=== PATIENT | male | born 1945 | race Caucasian/White ===

== ENCOUNTER → 2016-08-31 | Outpatient (CLI) | payer OTHER | LOC: BHFA 16:00 | PROVIDERS: ATTEND Internal Medicine Cardiovascular Disease | DX: I48.91 Unspecified atrial fibrillation (principal) ==

== ENCOUNTER → 2016-11-24 | Outpatient (CLI) | payer OTHER | LOC: BHFA 09:30 | PROVIDERS: ATTEND Internal Medicine Cardiovascular Disease | DX: I48.91 Unspecified atrial fibrillation (principal) ==

== ENCOUNTER → 2017-12-29 | Outpatient (CLI) | payer OTHER | LOC: BHFA 07:13 | PROVIDERS: ATTEND Internal Medicine Cardiovascular Disease | DX: I48.91 Unspecified atrial fibrillation (principal); R94.31 Abnormal electrocardiogram [ECG] [EKG] ==

== ENCOUNTER → 2018-06-07 | Outpatient (CLI) | payer OTHER | LOC: BHFA 10:30 | PROVIDERS: ATTEND Internal Medicine Cardiovascular Disease | DX: I48.91 Unspecified atrial fibrillation (principal) ==

== ENCOUNTER 2018-09-06 08:53 | Observation (INO) | payer OTHER ==
[2018-09-06] MEDS ORDERED: NS 500 ML IV ONE (08:55)
--- NOTE | 2018-09-06 08:59 | EDPHY ---
H & P Time Seen by Provider: 09/06/18 08:56 HPI/ROS: CHIEF COMPLAINT: Nausea, vomiting, lightheadedness HISTORY OF PRESENT ILLNESS: Patient has a history of atrial fibrillation and does have a permanent pacemaker. He presents to the ED today after he developed nausea, vomiting and lightheadedness after a 3 mi run today. The patient denies any chest pain or shortness of breath. He denies any diarrhea. He denies any fever, cough or congestion. The patient is brought in by paramedics. They did note a sinus rhythm and occasional activation of the patient's pacemaker with a rate of 110. The patient denies any acute abdominal pain. He denies any headache or lightheadedness. He does feel quite poor secondary to his ongoing nausea and retching. REVIEW OF SYSTEMS: A comprehensive 10 point review of systems is otherwise negative aside from elements mentioned in the history of present illness. Source: Patient, EMS - Personal History Tetanus Vaccine Date: 2006 - Medical/Surgical History Hx Asthma: No Hx Chronic Respiratory Disease: No Hx Diabetes: No Hx Cardiac Disease: No Hx Renal Disease: No Hx Cirrhosis: No Hx Alcoholism: No Hx HIV/AIDS: No Hx Splenectomy or Spleen Trauma: No Other PMH: PMH:HTN, afib (pacer), cpap. PSH: knee surgeries, fx's , appendectomy, tonsillectomy - Social History Smoking Status: Never smoked - Physical Exam Exam: General Appearance: Uncomfortable secondary to active vomiting Eyes: Pupils equal and round no pallor or injection ENT, Mouth: Mucous membranes moist Respiratory: There are no retractions, lungs are clear to auscultation Cardiovascular: Regular rate and rhythm Gastrointestinal: Abdomen is soft and nontender, no masses, bowel sounds normal Neurological: 5/5 strength all 4 extremities Skin: Warm and dry, no rashes Musculoskeletal: Neck is supple nontender Extremities: symmetrical, full range of motion Psychiatric: Patient is oriented X 3, there is no agitation Constitutional: Initial Vital Signs Temperature (C) 36.5 C 09/06/18 08:58 Heart Rate 63 09/06/18 08:58 Respiratory Rate 19 09/06/18 08:58 Blood Pressure 177/106 H 09/06/18 08:58 O2 Sat (%) 100 09/06/18 08:58 O2 Delivery Mode Room Air Allergies/Adverse Reactions: No Known Allergies Allergy (Verified 09/06/18 09:01) Home Medications: Medication Instructions Recorded Aspirin [Aspirin 325 mg (OTC)] 325 mg PO DAILY 10/16/12 Lisinopril [Zestril 20 mg (RX)] 20 mg PO DAILY 03/26/13 Medical Decision Making - Diagnostics EKG Interpretation: EKG: Complete interpretation has been separately recorded in the [employer] [facility] archive. Summary impression: Sinus rhythm, rate 64 Imaging Results: Imaging Impressions Chest X-Ray 09/06/18 09:33 Impression: 1. Clear lungs. No acute process. 2. Minimal cardiomegaly and pacemaker leads unchanged since 2012. ED Course/Re-evaluation: Patient presents to the ED with subjective palpitations. While in the department the patient had no obvious arrhythmia noted. His pacemaker did appear to be normally functioning. The patient's pacemaker was interrogated. Interrogation did demonstrate sporadic PVCs. The patient was quite anxious. He received a mg of Ativan. The patient also was noted to have no ischemic changes on his EKG and normal troponin. The patient underwent an echocardiogram which demonstrated no wall motion abnormality, pericardial effusion or other acute valvular issue. I discussed the case with the patient's regular mental health nurse Dr. Vaughan who has recommended to ED discharge. The patient has no complaints of chest pain or shortness of breath. The patient is noted to be neurologically intact. He has equal pulses in all 4 extremities. The patient will be discharged from the emergency department with strict return instructions. He will follow up with Dr. Vaughan as an outpatient. Differential Diagnosis: Differential diagnosis considered includes atrial fibrillation, atrial flutter, SVT, pacemaker malfunction, pericardial effusion, acute coronary syndrome, myocardial infarction - Data Points Laboratory Results: Laboratory Results 09/06/18 09:00 09/06/18 09:00 09/06/18 09/06/18 09/06/18 09:09 09:00 09:00 WBC 6.76 10^3/uL 10^3/uL (3.80-9.50) RBC 4.94 10^6/uL 10^6/uL (4.40-6.38) Hgb 16.0 g/dL g/dL (13.7-17.5) Hct 46.6 % % (40.0-51.0) MCV 94.3 fL fL (81.5-99.8) MCH 32.4 pg pg (27.9-34.1) MCHC 34.3 g/dL g/dL (32.4-36.7) RDW 13.1 % % (11.5-15.2) Plt Count 207 10^3/uL 10^3/uL (150-400) MPV 10.5 fL fL (8.7-11.7) Neut % (Auto) 51.9 % % (39.3-74.2) Lymph % (Auto) 36.8 % % (15.0-45.0) Cowley % (Auto) 8.6 % % (4.5-13.0) Eos % (Auto) 1.5 % % (0.6-7.6) Baso % (Auto) 0.9 % % (0.3-1.7) Nucleat RBC Rel Count 0.0 % % (0.0-0.2) Absolute Neuts (auto) 3.51 10^3/uL 10^3/uL (1.70-6.50) Absolute Lymphs (auto) 2.49 10^3/uL 10^3/uL (1.00-3.00) Absolute Monos (auto) 0.58 10^3/uL 10^3/uL (0.30-0.80) Absolute Eos (auto) 0.10 10^3/uL 10^3/uL (0.03-0.40) Absolute Basos (auto) 0.06 10^3/uL 10^3/uL (0.02-0.10) Absolute Nucleated RBC 0.00 10^3/uL 10^3/uL (0-0.01) Immature Gran % 0.3 % % (0.0-1.1) Immature Gran # 0.02 10^3/uL 10^3/uL (0.00-0.10) Sodium 142 mEq/L mEq/L (135-145) Potassium 4.0 mEq/L mEq/L (3.5-5.2) Chloride 109 mEq/L mEq/L (97-110) Carbon Dioxide 20 mEq/l L mEq/l (22-31) Anion Gap 13 mEq/L mEq/L (6-14) BUN 13 mg/dL mg/dL (7-23) Creatinine 0.8 mg/dL mg/dL (0.7-1.3) Estimated GFR > 60 Glucose 113 mg/dL H mg/dL (70-100) Calcium 9.7 mg/dL mg/dL (8.5-10.4) Total Bilirubin 1.2 mg/dL mg/dL (0.1-1.4) Conjugated Bilirubin 0.4 mg/dL mg/dL (0.0-0.5) Unconjugated Bilirubin 0.8 mg/dL mg/dL (0.0-1.1) AST 32 IU/L IU/L (17-59) ALT 29 IU/L IU/L (21-72) Alkaline Phosphatase 139 IU/L H IU/L (38-126) POC Troponin I 0.00 ng/mL ng/mL (0.00-0.08) Total Protein 7.3 g/dL g/dL (6.3-8.2) Albumin 4.6 g/dL g/dL (3.5-5.0) Lipase 131 IU/L IU/L (23-300) Medications Given: Discontinued Medications Sodium Chloride (Ns) 500 mls @ 1,000 mls/hr IV EDNOW ONE PRN Reason: Protocol Stop: 09/06/18 09:24 Last Admin: 09/06/18 09:04 Dose: 500 mls Lorazepam (Ativan Injection) 1 mg IVP EDNOW ONE Stop: 09/06/18 09:51 Last Admin: 09/06/18 09:54 Dose: 1 mg Point of Care Test Results: Chemistry 09/06/18 09:09 POC Troponin I 0.00 ng/mL ng/mL (0.00-0.08) Departure - Departure Disposition: Home, Routine, Self-Care Clinical Impression: Palpitations Condition: Good Instructions: Heart Palpitations (ED) Additional Instructions: 1. The testing done in the emergency department today is normal. 2. Please follow up with Dr. Vaughan. His office will contact you today to schedule a follow-up visit. 3. Please return to the ED immediately for any elevated heart rate, chest pain, shortness of breath or other concerns. Referrals: Vijay Vaughan MD [Medical Doctor] - As per Instructions
[2018-09-06 09:14] LABS: PLATELET COUNT 207 10^3/uL (150-400)
[2018-09-06] MEDS ORDERED: LORazepam 2 MG/ML INJ IVP ONE (09:50)
--- NOTE | 2018-09-06 09:58 | CPEKG ---
Test Reason : OPEN Blood Pressure : / mmHG Vent. Rate : 064 BPM Atrial Rate : 063 BPM P-R Int : 192 ms QRS Dur : 112 ms QT Int : 422 ms P-R-T Axes : 073 051 006 degrees QTc Int : 436 ms Sinus rhythm Confirmed by Reinaldo Sellers ([id number]) on 09/06/2018 9:57:57 AM Referred By: Reinaldo Sellers Confirmed By:Reinaldo Sellers
--- NOTE | 2018-09-06 10:44 | ECHO ---
[email or web address] [address] [address] Main: [phone] Echocardiography Examination Transthoracic Name: ASCENCION ROWE MR#: [id number] Study Date: 09/06/2018 Study Time: 09:58 AM Date of : 1945 Age: 72 year(s) Height: 182.9 cm (72 in.) Weight: 81.65 kg (180 lb.) BSA: 2.04 m2 Gender: Male Examination: Echo Contrast: Image Quality: Adequate Rhythm: Pacemaker rhythm Heart Rate: 60 bpm BP: 155 mmHg/87 mmHg Indication: Acute Dizziness, Nausea Procedure Staff Referring Physician: Shingle Sawyer: Reading Physician: Bob Alonso MD Requesting Provider: Indication: Acute Dizziness, Nausea Measurements Chambers AV/MV Label Value Normal Value Label Value Normal Value EF lower range (%) 70 % MV A Vmax 0.6 m/s EF upper range (%) 75 % MV E' lateral 0.08 m/s IVSd, 2D 0.7 cm (0.6cm - 1.1cm) MV E' mean 0.07 m/s LVDd, 2D 4.9 cm (4.2cm - 5.9cm) MV E' septal 0.06 m/s LVDs, 2D 3 cm (2.1cm - 4cm) MV E Vmax 0.47 m/s LVEF, 2D 70 % (54% - 74%) MV E/A 0.78 LVOT PGmax 4 mmHg MV E/E' lateral 6 LVOT PGmean 2 mmHg MV E/E' mean 6.71 LVOT Vmax 0.98 m/s (0.7m/s - 1.1m/s) MV E/E' septal 8.2 (0.45 - 1.25) LVOT Vmean 0.6 m/s TV/PV LVPWd, 2D 0.9 cm (0.6cm - 1cm) Label Value Normal Value RVDd, 2D 2.6 cm (1.9cm - 3.8cm) RA Pressure 5 mmHg LA Volume, BP 55 ml (18ml - 58ml) RVSP 26 mmHg LAESV index, BP 27 ml/m2 TR Pmax 21 mmHg Additional Vessels TR Vmax 2.31 m/s Label Value Normal Value PV PGmax 3 mmHg AoRoot, MM 3.4 cm (2.2cm - 3.7cm) PV Vmax, Caliper 0.88 m/s (0.6m/s - 0.9m/s) Conclusions Patient: ASCENCION ROWE Study Date: 09/06/2018 Page 1 of 3 09:58 AM Left Ventricle: Normal global systolic left ventricular function. EF range is estimated at 70 % - 75 %. Right Ventricle: There is a pacing wire present in the right ventricle. Mitral Valve: Trivial to mild mitral regurgitation. Tricuspid Valve: Trivial tricuspid regurgitation. Right Ventricular systolic pressure is measured at 26 mmHg. Findings Left Ventricle: Left ventricle is normal in size. Normal global systolic left ventricular function. EF range is estimated at 70 % - 75 %. Left ventricle wall thickness is normal. There are no regional wall motion abnormalities. Grade I Diastolic Dysfunction. No LV hypertrophy. Right Ventricle: Normal size right ventricle. The RV function appears grossly normal. There is a pacing wire present in the right ventricle. 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 The left atrium is normal in size. Right Atrium: The right atrium is normal in size. Mitral Valve: Mitral valve appears structurally normal. Trivial to mild mitral regurgitation. There is no mitral calcification. Aortic Valve: Aortic leaflets are structurally normal. No aortic valve regurgitation. Aortic leaflets exhibit no calcification. The aortic valve is trileaflet. Tricuspid Valve: Tricuspid valve leaflets are structurally normal. Trivial tricuspid regurgitation. Right Ventricular systolic pressure is measured at 26 mmHg. Pulmonary artery pressure normal. Pulmonic Valve: Pulmonic leaflets are structurally normal. Aorta: The aorta is normal. The aortic root size in M-mode measures 3.4 cm. Aorta Measurements AoRoot, MM is 3.4 cm. Pericardium: No pericardial effusion. Exam Details Procedure Ordered: Echo Procedure Status: Routine study Image Quality: Adequate Facility Location: Cardiac Echo 1 (No Signature Object) Patient: ASCENCION ROWE Study Date: 09/06/2018 Page 2 of 3 09:58 AM Patient: ASCENCION ROWE Study Date: 09/06/2018 Page 3 of 3 09:58 AM [id number]
[2018-09-06] MEDS ORDERED: ONDANSETRON DISINTEGRATING 4 MG TAB PO ONE (11:42)
[2018-09-06] MEDS ORDERED: MECLIZINE HCL 25 MG TAB PO ONE (11:42)
[2018-09-06] MEDS ORDERED: IOPAMIDOL (ISOVUE-370) 150 ML BTL IV ONE (12:06)
[2018-09-06] MEDS ORDERED: ONDANSETRON DISINTEGRATING 4 MG TAB PO PRN (13:45)
[2018-09-06] MEDS ORDERED: ONDANSETRON 4 MG/2 ML VIAL IVP PRN (13:45)
[2018-09-06] MEDS ORDERED: ACETAMINOPHEN 325 MG TAB PO PRN (13:45)
[2018-09-06] MEDS ORDERED: NS 1,000 ML IV SCH (14:00)
--- NOTE | 2018-09-06 14:18 | PDGENHP ---
<Lou Lehman - Last Filed: 09/06/18 15:02> History and Physical - Chief Complaint Vertigo, lightheadedness, N/V - History of Present Illness 72 y/o male w/ hx of atrial fibrillation not AC and dual pacemaker presents w/ acute onset of nausea, vomiting, and vertigo-like symptoms shortly after going for his 3 mile run today. He felt fine before the run but after the run and during recovery, he felt like his pacemaker continued to cause his heart rate to be elevated (reports it was 86 bpm instead of the usual 60s, BP normotensive) , felt nauseous, lightheaded and began to vomit. He decided to lie down thinking this would alleviate his symptoms but it did not. Denies CP, palpitations, fever, chills, diarrhea, constipation, headache or vision changes. He called 911. Pacemaker was interrogated and it demonstrated sporadic PVCs. During this time, the pt was quite anxious and received 1mg of IVP Ativan. Full cardiac work-up ( EKG, trop, echo) were unremarkable. Case was discussed w/pt's fresh work wrapper layer, Dr. Vaughan, who recommended pt to be d/c'ed from ED seeing how no c/o CP, SOB, unremarkable cardiac labs/images and appeared to be neurologically intact. Prior to d/c though, he developed recurrent symptoms of N/V/vertigo. Pt's reported he was having difficulty remembering events in the ED which seemed consistent with TGA. Further imaging (head CT w/o contrast, head/neck w/ contrast) were unremarkable. He is being admitted for treatment and monitoring of nausea, vomiting, and vertigo. History Information - Allergies/Home Medication List Allergies/Adverse Reactions: No Known Allergies Allergy (Verified 09/06/18 09:01) Home Medications: Aspirin [Aspirin 325 mg (OTC)] 325 mg PO HS 10/16/12 [Last Taken 09/05/18] Herbals/Supplements -Info Only 1 ea PO DAILY 09/06/18 [Last Taken Unknown] Lisinopril [Zestril 40 mg (*)] 40 mg PO HS 09/06/18 [Last Taken 09/05/18] Phoenix-3 Fatty Acids [Fish Oil 1000 mg (*)] 1,000 mg PO HS 09/06/18 [Last Taken 09/05/18] amLODIPine BESYLATE [Norvasc 5 mg (*)] 5 mg PO HS 09/06/18 [Last Taken 1 Week Ago ~08/30/18] I have personally reviewed and updated: family history, medical history, social history, surgical history - Past Medical History atrial fibrillation, hypertension Additional medical history: SEAN w/ CPAP. Atrial septal defect - Surgical History Reports: appendectomy, pacemaker/AICD Additional surgical history: Knee surgeries. Tonsillectomy - Family History Positive for: diabetes type II, hypertension - Social History Smoking Status: Never smoked Alcohol Use: Rarely (3-4 beers/week) Drug Use: None Additional social history: Active w/daily runs, plays tennis. 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 Review of Systems Review of Systems: ROS: 10pt was reviewed & negative except for what was stated in HPI & below Physical Exam Physical Exam: Lab data and imaging were reviewed. WBC: 6.76 RBC/H/H: 4.94/16/46.6 K: 4.0 BUN/Cr: 13/0.8 Alk phos: 139 AST/ALT: 32/29 Lipase: 131 Trop: 0.00 CXR: Mild cardiomegaly + pacemaker presence. Clear lungs. EKG: SR Echo: No wall abnormalities, EF 70-75% Head CT w/and w/o contrast: No intracranial hemorrhage. Negative CT Neck CT w/contrast: no significant ICA stenosis, patent vertebral arteries Temp Pulse Resp BP Pulse Ox 36.9 C 67 10 L 152/86 H 99 09/06/18 14:07 09/06/18 14:07 09/06/18 14:07 09/06/18 14:07 09/06/18 14:07 Constitutional: uncomfortable, other (Mild to moderately distressed pt, pleasant , cooperative. Appears uncomfortable because of his nausea.) Eyes: PERRL, anicteric sclera, EOMI, other (No nystagmus, unable to provoke dizziness w/head movements, felt slightly nauseous and lightheaded while upright ) Ears, Nose, Mouth, Throat: moist mucous membranes, hearing normal, ears appear normal, no oral mucosal ulcers Cardiovascular: regular rate and rhythym, no murmur, rub, or gallop, No edema Peripheral Pulses: 2+: dorsalis-pedis (R) (Radial 2+), dorsalis-pedis (L) ( Radial 2+) Respiratory: no respiratory distress, no rales or rhonchi, clear to auscultation Gastrointestinal: normoactive bowel sounds, soft, non-tender abdomen, no palpable masses Genitourinary: no bladder fullness, no bladder tenderness Skin: warm, normal color, no rashes or abrasions, no fluctuance, no induration, No mottled Musculoskeletal: full muscle strength, no muscle tenderness, normal joint ROM, no joint effusions Neurologic: AAOx3, sensation intact bilaterally, CN II-XII Intact, other ( Unable to recall 3 named items 5 minutes later. Gait steady, no signs of being off balance - pt feels "wobbly", performed [id number] test w/o issue) Psychiatric: interacting appropriately, not encephalopathic, thought process linear, anxious (Mildly anxious, is typically an anxious person. He was stressed recently applying for a position on the [employer].) Lymph, Heme, Immunologic: no cervical LAD, no supraclavicular LAD Lab Data & Imaging Review 09/06/18 09:00 09/06/18 09:00 WBC 6.76 10^3/uL (3.80-9.50) 09/06/18 09:00 RBC 4.94 10^6/uL (4.40-6.38) 09/06/18 09:00 Hgb 16.0 g/dL (13.7-17.5) 09/06/18 09:00 Hct 46.6 % (40.0-51.0) 09/06/18 09:00 MCV 94.3 fL (81.5-99.8) 09/06/18 09:00 MCH 32.4 pg (27.9-34.1) 09/06/18 09:00 MCHC 34.3 g/dL (32.4-36.7) 09/06/18 09:00 RDW 13.1 % (11.5-15.2) 09/06/18 09:00 Plt Count 207 10^3/uL (150-400) 09/06/18 09:00 MPV 10.5 fL (8.7-11.7) 09/06/18 09:00 Neut % (Auto) 51.9 % (39.3-74.2) 09/06/18 09:00 Lymph % (Auto) 36.8 % (15.0-45.0) 09/06/18 09:00 Henderson % (Auto) 8.6 % (4.5-13.0) 09/06/18 09:00 Eos % (Auto) 1.5 % (0.6-7.6) 09/06/18 09:00 Baso % (Auto) 0.9 % (0.3-1.7) 09/06/18 09:00 Nucleat RBC Rel Count 0.0 % (0.0-0.2) 09/06/18 09:00 Absolute Neuts (auto) 3.51 10^3/uL (1.70-6.50) 09/06/18 09:00 Absolute Lymphs (auto) 2.49 10^3/uL (1.00-3.00) 09/06/18 09:00 Absolute Monos (auto) 0.58 10^3/uL (0.30-0.80) 09/06/18 09:00 Absolute Eos (auto) 0.10 10^3/uL (0.03-0.40) 09/06/18 09:00 Absolute Basos (auto) 0.06 10^3/uL (0.02-0.10) 09/06/18 09:00 Absolute Nucleated RBC 0.00 10^3/uL (0-0.01) 09/06/18 09:00 Immature Gran % 0.3 % (0.0-1.1) 09/06/18 09:00 Immature Gran # 0.02 10^3/uL (0.00-0.10) 09/06/18 09:00 Sodium 142 mEq/L (135-145) 09/06/18 09:00 Potassium 4.0 mEq/L (3.5-5.2) 09/06/18 09:00 Chloride 109 mEq/L (97-110) 09/06/18 09:00 Carbon Dioxide 20 mEq/l (22-31) L 09/06/18 09:00 Anion Gap 13 mEq/L (6-14) 09/06/18 09:00 BUN 13 mg/dL (7-23) 09/06/18 09:00 Creatinine 0.8 mg/dL (0.7-1.3) 09/06/18 09:00 Estimated GFR > 60 09/06/18 09:00 Glucose 113 mg/dL (70-100) H 09/06/18 09:00 Calcium 9.7 mg/dL (8.5-10.4) 09/06/18 09:00 Total Bilirubin 1.2 mg/dL (0.1-1.4) 09/06/18 09:00 Conjugated Bilirubin 0.4 mg/dL (0.0-0.5) 09/06/18 09:00 Unconjugated Bilirubin 0.8 mg/dL (0.0-1.1) 09/06/18 09:00 AST 32 IU/L (17-59) 09/06/18 09:00 ALT 29 IU/L (21-72) 09/06/18 09:00 Alkaline Phosphatase 139 IU/L (38-126) H 09/06/18 09:00 POC Troponin I 0.00 ng/mL (0.00-0.08) 09/06/18 09:09 Total Protein 7.3 g/dL (6.3-8.2) 09/06/18 09:00 Albumin 4.6 g/dL (3.5-5.0) 09/06/18 09:00 Lipase 131 IU/L (23-300) 09/06/18 09:00 Assessment & Plan Plan: 72 y/o male w/ atrial fibrillation not on AC and pacemaker presenting w/acute onset of N/V/vertigo-like symptoms today post-run. He runs 3 miles daily, did not take a different path today. He has not had these symptoms present before. After receiving Ativan in the ED d/t anxiety, it seems he developed TGA w/the inability to recall 3 items after 5 minutes and not remembering events while in the ED. A full work-up ensued and was unremarkable. Hemodynamically stable. #Vertigo: Unable to provoke symptoms w/ head movements however while upright and ambulating, reports mild nausea and lightheadedness. -Neurology to consult in AM. Possible viral infection provoking symptoms. If symptoms not improved by AM or symptoms worsen, brain MRI w/o contrast would be appropriate. -Anti-emetics PRN -Meclizine -Received 1/2L NS in ED; will receive IVF x 1 bag d/t IV contrast and N/V -Orthostatic vitals one time -PT/OT to evaluate and treat #TGA: see above #A-fib: Currently not AC. Pt reports he was started on Eliquis in 2018 but stopped mid-2018 because he does not believe he has a-fib any longer. Dr. Vaughan is unaware he stopped his AC. -Cont tele monitoring -Informed Dr. Vaughan pt is no longer on AC -Cycle trop x 1 this afternoon; first trop negative -Cont ASA -Recommend for pt to f/u w/outpatient cards #HTN: on amlodipine, lisinopril Diet: Regular Code: Full VTE ppx: Lovenox subq Dispo: Admit to obs <Jair Gilliland - Last Filed: 09/06/18 19:04> History and Physical - History of Present Illness Review of Systems Review of Systems: Physical Exam Physical Exam: Temp Pulse Resp BP Pulse Ox 37.0 C 60 10 L 134/83 H 96 09/06/18 15:11 09/06/18 15:11 09/06/18 15:11 09/06/18 15:11 09/06/18 15:11 Lab Data & Imaging Review 09/06/18 09:00 09/06/18 09:00 WBC 6.76 10^3/uL (3.80-9.50) 09/06/18 09:00 RBC 4.94 10^6/uL (4.40-6.38) 09/06/18 09:00 Hgb 16.0 g/dL (13.7-17.5) 09/06/18 09:00 Hct 46.6 % (40.0-51.0) 09/06/18 09:00 MCV 94.3 fL (81.5-99.8) 09/06/18 09:00 MCH 32.4 pg (27.9-34.1) 09/06/18 09:00 MCHC 34.3 g/dL (32.4-36.7) 09/06/18 09:00 RDW 13.1 % (11.5-15.2) 09/06/18 09:00 Plt Count 207 10^3/uL (150-400) 09/06/18 09:00 MPV 10.5 fL (8.7-11.7) 09/06/18 09:00 Neut % (Auto) 51.9 % (39.3-74.2) 09/06/18 09:00 Lymph % (Auto) 36.8 % (15.0-45.0) 09/06/18 09:00 Henderson % (Auto) 8.6 % (4.5-13.0) 09/06/18 09:00 Eos % (Auto) 1.5 % (0.6-7.6) 09/06/18 09:00 Baso % (Auto) 0.9 % (0.3-1.7) 09/06/18 09:00 Nucleat RBC Rel Count 0.0 % (0.0-0.2) 09/06/18 09:00 Absolute Neuts (auto) 3.51 10^3/uL (1.70-6.50) 09/06/18 09:00 Absolute Lymphs (auto) 2.49 10^3/uL (1.00-3.00) 09/06/18 09:00 Absolute Monos (auto) 0.58 10^3/uL (0.30-0.80) 09/06/18 09:00 Absolute Eos (auto) 0.10 10^3/uL (0.03-0.40) 09/06/18 09:00 Absolute Basos (auto) 0.06 10^3/uL (0.02-0.10) 09/06/18 09:00 Absolute Nucleated RBC 0.00 10^3/uL (0-0.01) 09/06/18 09:00 Immature Gran % 0.3 % (0.0-1.1) 09/06/18 09:00 Immature Gran # 0.02 10^3/uL (0.00-0.10) 09/06/18 09:00 Sodium 142 mEq/L (135-145) 09/06/18 09:00 Potassium 4.0 mEq/L (3.5-5.2) 09/06/18 09:00 Chloride 109 mEq/L (97-110) 09/06/18 09:00 Carbon Dioxide 20 mEq/l (22-31) L 09/06/18 09:00 Anion Gap 13 mEq/L (6-14) 09/06/18 09:00 BUN 13 mg/dL (7-23) 09/06/18 09:00 Creatinine 0.8 mg/dL (0.7-1.3) 09/06/18 09:00 Estimated GFR > 60 09/06/18 09:00 Glucose 113 mg/dL (70-100) H 09/06/18 09:00 Calcium 9.7 mg/dL (8.5-10.4) 09/06/18 09:00 Total Bilirubin 1.2 mg/dL (0.1-1.4) 09/06/18 09:00 Conjugated Bilirubin 0.4 mg/dL (0.0-0.5) 09/06/18 09:00 Unconjugated Bilirubin 0.8 mg/dL (0.0-1.1) 09/06/18 09:00 AST 32 IU/L (17-59) 09/06/18 09:00 ALT 29 IU/L (21-72) 09/06/18 09:00 Alkaline Phosphatase 139 IU/L (38-126) H 09/06/18 09:00 POC Troponin I 0.00 ng/mL (0.00-0.08) 09/06/18 09:09 Troponin I < 0.012 ng/mL (0.000-0.034) 09/06/18 14:47 Total Protein 7.3 g/dL (6.3-8.2) 09/06/18 09:00 Albumin 4.6 g/dL (3.5-5.0) 09/06/18 09:00 Lipase 131 IU/L (23-300) 09/06/18 09:00 Assessment & Plan Assessment: Palpitations (Acute) Plan: I have reviewed the chart, and seen the patient with interview and examination, and have discussed the patient with [facility] nurse practitioner Overall agree with the history physical and plans as above. The 1 issue I would correct is that the problem list at the end of the note mentions TGA, which was intended to designate transient global amnesia. In fact the patient had amnesia after receiving Ativan in the ER and the patient does not have transient global amnesia I have placed my discussion of the patient's acute issues separately in another note today
--- NOTE | 2018-09-06 19:02 | HOSPPROG ---
Hospitalist Progress Note Assessment/Plan: I have examined this patient and interviewed him in detail, reviewed the results of all his tests, and I reviewed with Katherine Lehman nurse practitioner who did his history and physical. DIAGNOSES: * Acute vertigo onset this morning has now resolved, and his last dose of medication was long enough ago that I think his symptoms actually are resolving or rapidly improving * Known history of AFib but no recent AFib by interrogation of his pacer today * Palpitations he experienced today were due to PVCs according to his pacemaker. These are benign in likely triggered by his vertigo event * Chronic sleep apnea on CPAP This patient's vertigo has resolved and I am unable with my exam to find anything to determine its cause or site of origin. There are several things in the story that make me believe this is probably viral labyrinthitis. The 1st is that his has had a very bad cold going on for the last couple weeks or so. The 2nd is that he had persistent vertigo severe enough that he was lying on the floor in his house vomiting, but there were no other bulbar neurologic symptoms or other neurologic symptoms. The 3rd is that he does have 1 prior episode of very similar vertigo that lasted several hours, and for which he had not received any specific assessment so we have no previous clinical records. Having ischemic bulbar vertigo twice several years apart with no other associated neurologic symptoms seems unlikely. There is no history of a recent head injury and there are no hearing symptoms or tinnitus to suggest other ear related vertigo aside from viral labyrinthitis. At this point as his symptoms are resolving there is likely little else we would need to do if this is a viral labyrinthitis. He could certainly use symptomatic medications as needed for any recurrent symptoms. On the off chance that this is ischemic, we are unable to do MRI as he has a pacemaker. He does have atrial fibrillation history but we have interrogated his pacemaker and he has had no recent atrial fibrillation so this would not be in atrial fib induced ischemia. He does take a daily aspirin, so that if for some reason as we go along we conclude that this could potentially have been ischemic, we might consider changing from aspirin to Plavix. Otherwise at this point the only thing that remains to be done is to watch on electronic device monitor here and check his cholesterol. Other tests have all been completed and her unrevealing Regarding his AFib the patient tells me that he did not want to take Eliquis when the AFib was diagnosed so he was placed on Tykosin. He had no AFib on the tightness in and he told Dr. Vaughan that he did not want to take the tightness in anymore. Dr. Vaughan said that would be okay as long as he took Eliquis. In early June he stopped Tykosin and started Eliquis. After a month of Eliquis the patient had his pacemaker interrogated and there was no AFib in that month. The patient decided that he did not think he was having AFib anymore and stopped taking the Eliquis so he is on either medicine. I have advised the patient that even though he has not had any AFib since stopping tightness in his early June, he has a heart that is susceptible to AFib and the likelihood of him having some AFib in the future is quite high and will increase over time. Thus if he is neither on an antiarrhythmic or in anticoagulant he will remain at some stroke risk and that stroke risk will increase over time. My belief is that he should probably either be on an antiarrhythmic, or on an anticoagulant. One other possibility would be to consider a left atrial implant. I reviewed all this in detail with the patient and he will consider these things. At the moment he is not been wanting to get started back on Eliquis. I did review with him the relative risks of bleeding and stroke with combination of aspirin Eliquis or Plavix Eliquis. PLANS: * Observe here overnight on electronic device monitor * Watch for any recurrent vertigo or other symptoms and reassess to see if we can catch him during these symptoms and use exam to further elucidate likely origin of vertigo * Presumably he will continue to do well and plan on discharge home tomorrow * Check cholesterol * He will be seen by Neurology and we can review with Neurology. If Neurology feels like there is something about the story that sounds ischemic would consider switching from aspirin to Plavix. * As I have discussed with the patient I believe he should be doing something for his AFib whether that be anticoagulant, anti arrhythmic, or he could consider asking for referral to Dr. Alonso for possible left atrial device implantation. Either way I feel he is currently at at least some risk for stroke from AFib going forward, and that over time that risk will certainly increase Objective: Vital Signs Temp Pulse Resp BP Pulse Ox 37.0 C 60 10 L 134/83 H 96 09/06/18 15:11 09/06/18 15:11 09/06/18 15:11 09/06/18 15:11 09/06/18 15:11 09/05/18 09/06/18 09/07/18 06:59 06:59 06:59 Intake Total 1020 Balance 1020 ICD10 Worksheet Patient Problems: Problems Problem Status Onset Palpitations Acute Atrial fibrillation and flutter Active Bradycardia Active Implantation of cardiac pacemaker Active
[2018-09-06] MEDS ORDERED: ASPIRIN 325 MG TAB PO SCH (21:00)
[2018-09-06] MEDS ORDERED: LISINOPRIL 40 MG TAB PO SCH (21:00)
[2018-09-06] MEDS ORDERED: amLODIPine BESYLATE 5 MG TAB PO SCH (21:00)
[2018-09-07 04:28] LABS: PLATELET COUNT 167 10^3/uL (150-400)
[2018-09-07] MEDS ORDERED: ENOXAPARIN 40 MG/0.4 ML SYR SC SCH (09:00)
[2018-09-07] MEDS ORDERED: MECLIZINE HCL 12.5 MG TAB PO PRN (09:00)
--- NOTE | 2018-09-07 11:14 | NEUROPROG ---
Assessment: [id number] - Neurology Consult: - CC: Dizziness - HPI: 09/07/18: Pt developed N/V and vertigo on 09/06/18 after going for a run. Pt had pacemaker which was interrogated and showed PVCs but no afib. Head CT and head/ neck CTA were unremarkable. In the ER he was given ativan for anxiety and then had confusion which resolved. He cannot have a brain MRI due to his pacemaker. His neurologic exam was normal. His symptoms have resolved. They seem most consistent with a peripheral vertigo syndrome that has now resolved. Brain stem stroke is possible but less likely and cannot be fully excluded due to inability to get brain MRI due to pacemaker. No afib noted on cardiac defibrillator. At this time I would not recommend any change to current medications. I did discuss possibility of small brainstem stroke with patient and offered to change aspirin to plavix to cover this possibility but pt declined at this time. - PMHx: afib, pacemaker/AICD, HTN, SEAN, ASD - Home Meds: ASA 325 mg qd, lisinopril, amlodipine - SHx: no tobacco FHx: DM2, HTN - ROS: Pt denied acute fever, total vision loss, active severe chest pain, respiratory failure, total body severe rash, total bowel/bladder incontinence, psychosis, active seizures, or active bleeding - O: VS reviewed General: Alert Eyes: Fundoscopic exam not able to visualize optic disks CV: Heart RRR, no murmur, no carotid bruit Lungs: Clear to auscultation bilaterally, no rhonchi or rales Neuro: - Mental: . Oriented x person/place/date . concentration appears normal . speech fluency/comprehension normal . memory appears normal . fund of knowledge appear intact - Cranial Nerves: . II: PERRL, VFFTC . III/IV/: EOMI, no nystagmus, normal smooth pursuits, no Ptosis . V: facial sensation intact to LT . VII: face symmetric to eye closure and smile . VIII: hearing intact to conversation . IX/X: uvula raises symmetrically . XI: SCM 5/5 B/L strength . XII: tongue protrudes midline w/nl strength - Motor: . Tone: normal tone in all 4 extremity . Strength: no pronator drift, strength 5/5 throughout (B/L delt, bic, tri, hand programming director, hf/he, df/pf) - Reflexes: B/L bic/BR/patella 2/4 - Sensory: all 4 extremity intact to light touch - Coord: [id number] wnl, GERMAN wnl, [id number] wnl - Gait: normal casual gait - Labs: 09/06/18- CBC wnl - Rads: 09/06/18- Head CT wo: normal (I Personally visualized the images on 09/07/18) 09/06/18- CTA head/neck: normal 09/06/18- TTE: pacing wire in R ventricle, EF 70-75% - Assessment: 1. Probable Peripheral Vertigo Syndrome on 09/06/18 (resolved) - Plan: - Cannot have Brain MRI due to pacemaker - Continue aspirin 325 mg qd (pt declined changing to plavix) - Agree with PT/OT consults - F/U in neurology clinic 1-4 weeks after hospital discharge - No further neurologic w/u needed, neurology will sign off Objective: Vital Signs Temp Pulse Resp BP Pulse Ox 36.9 C 60 18 155/93 H 97 09/07/18 07:31 09/07/18 07:31 09/07/18 07:31 09/07/18 07:31 09/07/18 07:31 Laboratory Results 09/07/18 04:08 09/07/18 04:08 09/06/18 09/07/18 09/08/18 05:59 05:59 05:59 Intake Total 2520 Balance 2520 Allergies/Adverse Reactions: No Known Allergies Allergy (Verified 09/06/18 09:01)
[2018-09-07 12:01] VITALS: BP 133/81
--- NOTE | 2018-09-07 12:54 | ASDISCHSUM ---
Discharge Information Plan Status:Home with No Needs Medically Cleared to Leave:09/07/2018 Discharge Date:09/07/2018 CM D/C Disposition:Home, Routine, Self-Care ADT D/C Disposition:Home, Routine, Self-Care Projected Discharge Date:09/07/2018 Transportation at D/C: Discharge Delay Reason: Follow-Up Date:09/07/2018 Discharge Slot: Final Diagnosis: Placement Information Patient Contact Information Contact Name:MARY Relationship: Address:[address] Work Phone: City:[place] Alternate Phone: State/Zip Code:[place] [address] Email: Financial Information Financial Class:Medicare Advantage Plans Primary Plan Desc:[employer] MEDICARE ADV Primary Plan Number:[id number] Secondary Plan Desc: Secondary Plan Number: Assessment Information LACE LACE Length of stay for Answers: 1 day current admission Acuity / Level of Answers: No Care: Did the patient have an inpatient admission? Comorbidities - select Answers: Other Notes: AFib; HTN all that apply # of Emergency department Answers: 1-2 visits in the last 6 months Score: 3 Date Signed: 09/07/2018 12:53 PM Electronically Signed By:Tika Carl RN Intervention Information Intervention Type:*Incorrect Registration Date of Service:09/06/2018 02:25 PM Patient Type:Inpatient Staff Member:CATHY Cooper Courtney Hours: Discipline: Severity: Comment:
--- NOTE | 2018-09-07 17:57 | PDDCSUM ---
Discharge Summary Discharge Summary: Discharge diagnosis Vertigo Palpitations SEAN History of AFib Patient was admitted with complaints of vertigo. He underwent a CTA of his head and neck which were unremarkable. He was not able to undergo MRI due to pacemaker placement. He has a history of AFib but was taken off Tikosyn and anticoagulation as he had had no episodes of atrial fibrillation in a very long time. His vertigo resolved spontaneously. Neurology was consulted who did not think that this represented a CVA. Cardiology was consulted who interrogated his pacemaker and found no evidence of atrial fibrillation although patient did experience palpitations that correlated with symptoms. The decision was made to restart anticoagulation and have him follow up with cardiology for further evaluation. He was discharged home in good condition with no further symptoms of vertigo to follow up with primary care provider along with Cardiology. Disposition Home in good condition
== END 2018-09-07 12:59 | disposition home or self-care (01) ==
LOC: EDUNIT# → INTOOBSV 12:27 → F2W 13:55
PROVIDERS: ADMIT Internal Medicine; ATTEND Internal Medicine
DX: R42 Dizziness and giddiness (principal); R00.2 Palpitations; G47.33 Obstructive sleep apnea (adult) (pediatric); I48.91 Unspecified atrial fibrillation; E86.9 Volume depletion, unspecified; Z95.0 Presence of cardiac pacemaker; Z90.89 Acquired absence of other organs
CPT/HCPCS: 70450; 70496; 70498; 71045; 93005; 93306; 96374; 97161; 97165; 99285; G0378; J2060; Q9967; 84484-ER; J1650